=== PATIENT | male | born 1940 | race Caucasian/White ===

== ENCOUNTER 2019-12-09 14:20 | Emergency (ER) | payer OTHER ==
[~2019-12-09] VITALS: Ht 182.9 cm; Wt 102.1 kg
[2019-12-09] MEDS ORDERED: TAMS0.4C (15:37)
[2019-12-09] MEDS ORDERED: KAOPECTATE262 MG/15 (15:37)
[2019-12-09] MEDS ORDERED: EC-NAPROSYN500 MG (15:37)
== END 2019-12-09 19:06 | disposition home or self-care (01) ==
LOC: ER 14:20
DX: K60.2 Anal fissure, unspecified (principal)